=== PATIENT | male | born 1980 | race Caucasian/White ===

== ENCOUNTER 2016-09-24 13:23 | Emergency (ER) | payer MEDICAID ==
[2016-09-24 13:24] VITALS: BMI 30.2
[2016-09-24 13:34] VITALS: TEMP 98.5
[2016-09-24] MEDS ORDERED: PREDNISONE 20 MG TAB PO ONE (14:25)
[2016-09-24] MEDS ORDERED: CYCLOBENZAPRINE 10 MG TAB PO ONE (14:25)
[2016-09-24] MEDS ORDERED: OXYCODONE HCL 5 MG TABLET PO ONE (14:25)
--- NOTE | 2016-09-24 14:28 | EDPRACDOC ---
- General Information Chief Complaint: Back Pain Stated Complaint: FELL LOWER BACK PAIN Time Seen by Provider: 09/24/16 13:56 Information Source: Patient Mode Of Arrival: Car Home Medications: Home Medications Loratadine 10 mg PO DAILY 04/09/16 Baclofen 20 mg PO TID #60 tablet 07/31/16 ClonazePAM [Klonopin] 0.5 mg PO TID #60 tablet 07/31/16 Oxycodone (OxyCONTIN) Ext Rel [Oxycontin] 10 mg PO Q12H #60 tabcr 07/31/16 Pregabalin [Lyrica] 150 mg PO TID #90 capsule 07/31/16 Ranitidine HCl [Zantac 75] 75 mg PO BID 07/31/16 Trazodone HCl 100 mg PO QHS #30 tablet 07/31/16 Venlafaxine HCl [Effexor] 225 mg PO DAILY #30 tablet 07/31/16 Cyclobenzaprine HCl [Flexeril] 10 mg PO TID #15 tablet 09/24/16 Ketoprofen 75 mg PO TID #15 capsule 09/24/16 Oxycodone HCl [Roxicodone] 5 mg PO TID PRN 09/24/16 Prednisone [Deltasone] 20 mg PO BID #12 tablet 09/24/16 Testosterone Cypionate [Depo-Testosterone] 200 mg IM .[id number] 09/24/16 Tramadol HCl [Ultram] 50 mg PO Q8H 09/24/16 Allergies/Adverse Reactions: Allergies Allergy/AdvReac Type Severity Reaction Status Date / Time No Known Allergies Allergy Verified 09/24/16 13:34 - History of Present Illness Onset: LAST NIGHT HPI: PT C/O LOW BACK PAIN AFTER FALLING OUT OF THE BED THIS AM. PT STATES HAS H/O CHRONIC LOW BACK PAIN DUE TO DDD. IS CURRENTLY BEING TREATED BY DR. MONTES AND IS ON ROXICODONE 5MG QID AND OXYCONTIN 10MG BID ALONG WITH LYRICA AND KLONOPIN. NO LOSS OF BOWEL OR BLADDER CONTROL AT THIS TIME. Pain Location: Reports: Bilateral, Lumbar Pain Radiates To: Reports: Other (BOTH LEGS BUT THIS IS NOT NEW.) Pain Caused By: Reports: Fall (OUT OF BED) Circumstances: Reports: Unknown Relevant History: Reports: Chronic back pain Pain Severity: Reports: Moderate Pain Quality: Reports: Aching, Dull, Sharp Worsened By: Reports: Movement, Twisting, Walking Associated Signs and Symptoms: Reports: None ED Past Medical History - History Reviewed Yes Nurses notes reviewed and agree except as marked Travel Outside of [place] in the Last 3 Months?: No - Patient Medical History Musculoskeletal History: Reports: Other (DDD - CHRONIC BACK PAIN) Psychological History: Reports: Depression - Social Medical History Smoking Status: Heavy tobacco smoker (5 or more cigarettes/day or daily pipe/ cigar) ETOH: None Substance Abuse: None Lives With: Other Lives In: Home EDM Review of Systems - Review of Systems ROS Negative Except as Marked: Yes All systems reviewed and were negative except as marked Constitutional: No Symptoms Reported. negative: Fever, Chills, Weakness, Fatigue, Loss of Appetite Eyes: No Symptoms Reported. negative: Redness, Blurred Vision, Double Vision, Discharge, Pain, Light Sensitive, Photophobia Ears: No Symptoms Reported. negative: Pain, Hearing Loss, Drainage, Ear Pulling Throat: No Symptoms Reported. negative: Pain, Swelling Nose: No Symptoms Reported. negative: Congestion, Bleeding, Discharge, Injection, Swelling, Deformity, Ecchymosis, Tender, Abrasion, Laceration Mouth: No Symptoms Reported. negative: Pain, Drooling Respiratory: No Symptoms Reported. negative: Cough, Brassy Cough, Barky Cough, Shortness of Breath, Wheezing, Hemoptysis Cardiovascular: No Symptoms Reported. negative: Chest Pain, Palpitations, Syncope, Edema, Orthopnea, PND, Skin Mottling, Cyanosis Gastrointestinal: No Symptoms Reported. negative: Pain, Constipation, Nausea, Vomiting, Diarrhea, Melena, Formula Intolerance Genitourinary: No Symptoms Reported. negative: Dysuria, Hematuria, Frequency, Discharge, Bleeding, Testicular Pain, Neurological: No Symptoms Reported. negative: Headache, Dizziness, Seizure, Numbness, Weakness, Speech Difficulty, Gait Difficulty Musculoskeletal: Back (LSPINE). negative: Arm, Ankle, Chestwall, Elbow, Forearm , Femur, Foot, Hand, Hip, Knee, Leg, Neck, Pelvis, Ribs, Shoulder, Wrist Integumentary: No Symptoms Reported. negative: Itching, Rash, Bruising, Wound Allergic/Immunologic: No Symptoms Reported. negative: Hives, Itching Hematologic: No Symptoms Reported. negative: Lymphadenopathy, Easy Bruising, Easy Bleeding Endocrine: No Symptoms Reported. negative: Weight Gain, Weight Loss Psychiatric: No Symptoms Reported. negative: Anxiety, Depression, Hallucinations, Insomnia, Suicidal - Physical Exam Constitutional: No apparent distress, Alert (Awake) Oriented to: Time, Person, Place Last recorded Vital Signs: Last Vital Signs Temp 98.5 F 09/24/16 13:29 Pulse 102 09/24/16 13:40 Resp 18 09/24/16 13:40 BP 117/74 09/24/16 13:40 Pulse Ox 94 09/24/16 13:40 Oxygen Pulse Oxygen Saturation 94 O2 Device Oxygen Flow Rate Fraction of Inspired Oxygen ( FIO2) - HEENT Head: Normal ( normocephalic) Eye Exam: Normal (PERRL, EOMI, Sclera white) Oropharynx: Normal (Pharynx:Moist without exudate,Gums-no swelling) Tympanic Membrane: Normal ENT EAC: Normal TMJ: Normal Nose: No Symptoms Reported (septum midline) Neck: Normal (FROM, trachea at midline) - Respiratory/Cardiovascular Respiratory: Normal - CTA (BBS clear to auscultation without adventitious sounds ) Cardiovascular: Normal (RRR without murmur, gallop or rub) - GI Auscultation: Normal (NABS) Palpation: Normal (Soft,No rebound or guarding, non distended) Tenderness: Non tender Turner's Sign: Negative - Musculoskeletal Back: Normal (Non-Tender) Extremities: Normal (Normal tone, Pulses 2+ No cyanosis or edema, FROM) - Integumentary Skin: Normal, Warm, Dry Lymphatics: Normal (no adenopathy) - Neurologic Memory Impaired: Normal Motor Function: Normal (Normal tone, Pulses 2+ No cyanosis or edema, FROM) Cranial Nerve: Normal (CN II-X11 intact sensation, strength 5/5) Cerebellar: Normal Mood Description: Normal Perception: Normal ED Back Exam - Neurologic Motor Deficit: None Reflexes: Normal - Musculoskeletal Cervical: Normal Thoracic: Normal Lumbar: Tender Midline: Tender Paraspinous: Tender Pelvis: Normal - Differential Diagnosis Fracture, Musculoskeletal pain, Strain - Diagnostic Imaging LSPINE Image interpreted by: Radiologist IMPRESSION: No acute findings. Evidence of recent oral contrast administration. Decision Time to Discharge: 15:15 - Departure Disposition: Home Condition: Stable Final Diagnosis: Lumbar sprain Instructions: Thoracic (Lumbar) Strain Education/Counseling Given To: Patient Education/Counseling Given Regarding: Diagnosis, Treatment, Prognosis, Follow Up Referrals: Manfred Montes MD [Primary Care Provider] - One Week Prescriptions: Cyclobenzaprine HCl [Flexeril] 10 mg PO TID #15 tablet Ketoprofen 75 mg PO TID #15 capsule Prednisone [Deltasone] 20 mg PO BID #12 tablet Additional Instructions: FOLLOW UP WITH YOUR PRIMARY MEDICAL DOCTOR FOR FURTHER EVALUATION.
[2016-09-24 14:53] VITALS: BP 124/67
--- NOTE | 2016-09-24 14:56 | DIRPT ---
CLINICAL DATA: Low back pain after falling out of bed this morning EXAM: LUMBAR SPINE - COMPLETE 4+ VIEW COMPARISON: 08/22/2016 FINDINGS: Scattered opacities over the abdomen suggest recent oral contrast administration. Minimal levoscoliosis lumbar spine stable. No fracture. Normal anterior-posterior alignment. No significant degenerative change. IMPRESSION: No acute findings. Evidence of recent oral contrast administration. Electronically Signed By: Mingo Burrows M.D. On: 09/24/2016 14:53
[2016-09-24 15:44] VITALS: PULSE 94
== END 2016-09-24 15:43 | disposition home or self-care (01) ==
LOC: ED 13:23
DX: S39.012A Strain of muscle, fascia and tendon of lower back, initial encounter (principal); W06.XXXA Fall from bed, initial encounter; F17.200 Nicotine dependence, unspecified, uncomplicated
CPT/HCPCS: 72110; 99284; J3490